=== PATIENT | male | born 1990 | race Caucasian/White ===

== ENCOUNTER 2020-07-01 10:19 | Day surgery (SDC) | payer OTHER, SELFPAY ==
[2020-06-25 15:45] VITALS: BMI 28.6
[2020-07-01 10:57] VITALS: BP 134/75; PULSE 72; RESP 16; TEMP 36.7; O2SAT 97
--- NOTE | 2020-07-01 11:05 | HO.ANESPROP2 ---
HPI - Anesthesia Eval Consult details Narrative: 29 yo male patient [facility] Past Medical History Medical History (Updated 06/25/20 @ 15:43 by Aisha Rivas) Acid reflux No significant medical problems Surgical History Surgical History (Updated 06/25/20 @ 15:43 by Aisha Rivas) No significant past surgical history Social History Social History Are you a primary career and guidance counselor to a significant other at home: No Do you presently have visiting nurse or other home services: No Smoking Status: Former smoker Smoking Quit Date: 03/2020 Use of substances other than those prescribed or required for medical reasons: Yes Substance Use Frequency: Occasionally Have you been hit, kicked, punched, or otherwise hurt by someone within the past year? If so, by whom?: No Advance Directives: No Advance Directives Information Provided: No Advance Directives on File: No Recently lost weight without trying: No Meds Allergies Allergy/AdvReac Type Severity Reaction Status Date / Time No Known Allergies Allergy Verified 07/01/20 11:11 Home Medications Medication Instructions Recorded Confirmed Last Taken Type omeprazole 1 cap PO QAM 06/25/20 06/25/20 Unknown History Exam Exam Date and Time: July 01, 2020 1105 Height,Weight and Vital Signs: Height 5 ft 7 in Weight 83.007 kg Vital Signs Temp Pulse Resp BP Pulse Ox 07/01/20 10:57 98.0 F 72 16 134/75 97 Airway Mallampati Class: II TM Dist: >3cm Neck ROM: Full Loose/Missing/Broken Teeth: No (Filling fell out of tooth bottom left) Heart: RRR Lungs: CTAB Assessment and Plan Assessment Anesthesia Assessment: Anesthesia Plan Discussed and Chart Reviewed Final Anesthetic Review NPO: Yes ASA Class: II Final Preanesthetic Review: No Changes in Pt Med Stat, Meds/Allgs Chart Reviewed, Consent Obtained/Reviewed and Anes Risks/Benef Reviewed Patient Risk: Low Procedure Risk: Low Assessment/Block/Sedation in SS: Assess/Block/Sedation-SS Anesthetic Plan Anesthetic Plan: MAC: Disposition: Standard PACU
[2020-07-01] MEDS: Lactated Ringers 1,000 ML 50 ML IV (11:08)
--- NOTE | 2020-07-01 11:21 | MHC.SHP ---
Pre-Procedural Eval Section A The patient is an INPATIENT: No Changes since office visit: No Cold of Flu in the past 2 weeks, No New Medical Problems, No Changes in Medication and No Patient answered all questions The History & Physical has been completed within 30 days and I have reviewed it.: Yes Section B Chief Complaint: chest pain,reflux disease Allergies: Allergies Allergy/AdvReac Type Severity Reaction Status Date / Time No Known Allergies Allergy Verified 07/01/20 11:11 Plan I have reviewed the history and physical and performed a pertinent physical examination on my patient. No changes have occurred unless specified.
--- NOTE | 2020-07-01 11:43 | PM.OP ---
Brief Operative Note Date of Service: 07/01/20 Pre-op diagnosis: gerd Post-op diagnosis: same Procedure: egd Surgeon: Maxi Yepez Anesthesia: MAC Estimated blood loss (mL): 5 Pathology: other (bxs antrum egj 30 cm) Condition: stable Disposition: PACU
[2020-07-01 11:44] VITALS: BP 116/55; PULSE 66; RESP 12; TEMP 36.8; O2SAT 97
[2020-07-01 11:59] VITALS: BP 128/74; PULSE 68; RESP 17; TEMP 36.8; O2SAT 97
--- NOTE | 2020-07-01 12:55 | OP_ITS ---
SURGEON: Maxi Yepez MD INDICATIONS: Gastroesophageal reflux disease. PREOPERATIVE DIAGNOSIS: POSTOPERATIVE DIAGNOSIS: PROCEDURE PERFORMED: Upper endoscopy with biopsy. ESTIMATED BLOOD LOSS: COMPLICATIONS: ANESTHESIA: ASSISTANTS: SPECIMENS: MEDICATIONS: Monitored anesthesia care. DESCRIPTION OF PROCEDURE: History and physical performed. The risks and benefits of the procedure were explained to the patient. Informed consent was obtained. The patient was placed in the left lateral decubitus position. The Olympus video gastroscope was introduced into the esophagus, stomach, and duodenum. Examination was performed and the scope was removed. He tolerated the procedure well and was taken to recovery area in stable condition. FINDINGS: ESOPHAGUS: The esophagus had a slight ring-like appearance to it. The EG junction was slightly irregular. There was no esophagitis. STOMACH: The stomach showed no evidence of masses, ulcers, or polyps. DUODENUM: The bulb and second portion were normal. Biopsies were obtained from the antrum, EG junction, and 30 cm in the esophagus. IMPRESSION: Gastroesophageal reflux disease. RECOMMENDATION: Follow up the biopsy results. MD MAURILIO Love/MODL / [id number]
== END 2020-07-01 12:25 | disposition home or self-care (01) ==
PROVIDERS: PCP Family Medicine; Visit Provider Internal Medicine Gastroenterology
PROC: 0DJ08ZZ Inspection of Upper Intestinal Tract, Via Natural or Artificial Opening Endoscopic (ICD-10-PCS; CPT 43235; principal; 2020-07-01 11:30)
DX: K21.00 Gastro-esophageal reflux disease with esophagitis, without bleeding (principal); R07.9 Chest pain, unspecified; Z79.899 Other long term (current) drug therapy; Z87.891 Personal history of nicotine dependence
CPT/HCPCS: 43239; 88305; 88342; J3010